=== PATIENT | male | born 1935 | race Caucasian/White ===

== ENCOUNTER → 2018-01-18 | Outpatient (CLI) | payer MEDICARE, OTHER ==
[~2018-01-18] MED LIST: ALB18R INH; AMOX-559 PO; ASCO-191 PO; ASPI81TA94 PO; AZIT-1 PO; CALC-852 PO; DIPH0.5D12 IM; DONE10TA38 PO; GARL5000 PO; GLUC100026 PO; GUAI600T57 PO; IPRA3AMP21 IH; LEVO750T44 PO; MEMA28CA PO; PNEU0.5D3 IM; PRED-1 PO; PRED20TA6 PO; VITA0.4T10 PO
== END ==
LOC: LAB 14:24
PROVIDERS: ATTEND Nurse Practitioner Family
DX: R41.0 Disorientation, unspecified (principal)
CPT/HCPCS: 81001

== ENCOUNTER → 2018-01-25 | Outpatient (CLI) | payer MEDICARE, OTHER ==
--- NOTE | 2018-01-25 11:07 | RADIOLOGY IMAGING REPORT ---
FACILITY: [facility] PATIENT NAME: Ramiro Edmond : 1935 MR: [id number] V: [id number] EXAM DATE: ORDERING PHYSICIAN: LEIGH SCHAEFER TECHNOLOGIST: Location: [facility] Patient: Ramiro Edmond : 1935 Visit/Account:[id number] Date of Sevice: 01/25/2018 EXAMINATION: Head CT without intravenous contrast HISTORY: Confusion, frequent falls, dementia, severe fall and hit head November 2017 TECHNIQUE: Contiguous axial images were obtained from the skull base to the vertex without intraven ous contrast. Sagittal and coronal reformatted images are also submitted. Dose Lowering Technique One of the following dose optimization techniques was utilized in the performance of this exam: Autom ated exposure control; adjustment of the mA and/or kV according to the patient's size; or use of an i terative reconstruction technique. Specific details can be referenced in the facility's radiology C T exam operational policy. COMPARISON: MR the brain July 18, 2013 FINDINGS: Brain volume: There is mild diffuse central and cortical atrophy present. Also noted is moderate ce rebellar atrophy although similar to the prior MR Ventricles: There are bilateral choroid plexus cysts in the trigones of both lateral ventricles as w ere present on the prior MR Acute ischemic changes: None. Hemorrhage: There is a holohemispheric isodense left subdural hematoma. The hematoma measures appro ximately 1.1 cm in maximum thickness. There is a 3.5 mm left to right midline shift. There is also a 1 cm in diameter isodense right parietal subdural hematoma Masses / edema: None. Paz-white: Negative. White matter: Normal. Vessels: There are moderate calcifications in the vertebral arteries and carotid siphons. The ectat ic left vertebral artery is producing marked mass effect on the ventral aspect of the medulla althoug h appears similar to the prior MR Extra-axial: As discussed above under hemorrhage Calvarium / scalp: Negative. Skull base / visualized face: Negative. Visualized sinuses / orbits: Negative. IMPRESSION: There are bilateral isodense subdural hematomas as described above. The largest is on the left and i s producing a 3.5 mm [id number] midline shift. There is no evidence of downward transtentorial he rniation. There is marked mass effect on the ventral aspect of the mid to this secondary to the ectatic left ve rtebral artery although appears similar to the prior MR. . 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 Report Dictated By: Angeles Christie MD at 01/25/2018 10:47 AM Report E-Signed By: Angeles Christie MD at 01/25/2018 11:03 AM WSN:[id number]
== END ==
LOC: RAD 10:02
PROVIDERS: ATTEND Internal Medicine
DX: S06.329A Contusion and laceration of left cerebrum with loss of consciousness of unspecified duration, initial encounter (principal); S06.319A Contusion and laceration of right cerebrum with loss of consciousness of unspecified duration, initial encounter; I77.819 Aortic ectasia, unspecified site; G93.0 Cerebral cysts
CPT/HCPCS: 70450

== ENCOUNTER → 2018-01-29 | Outpatient (CLI) | payer MEDICARE, OTHER ==
--- NOTE | 2018-01-29 16:04 | RADIOLOGY IMAGING REPORT ---
FACILITY: [facility] PATIENT NAME: Ramiro Edmond : 1935 MR: [id number] V: [id number] EXAM DATE: ORDERING PHYSICIAN: LEIGH SCHAEFER TECHNOLOGIST: Location: [facility] [place] Patient: Ramiro Edmond : 1935 Visit/Account:[id number] Date of Sevice: 01/29/2018 EXAMINATION: Head CT without intravenous contrast History: Lateral subdural hematomas TECHNIQUE: Contiguous axial images were obtained from the skull base to the vertex without intraven ous contrast. One of the following dose optimization techniques was utilized in the performance of th is exam: Automated exposure control; adjustment of the mA and/or kV according to the patient's size; or use of an iterative reconstruction technique. Specific details can be referenced in the facility 's radiology CT exam operational policy. COMPARISON STUDIES: 01/25/2018 FINDINGS: Bilateral predominantly low-density subdural collections left larger than right are redemonstrated. T he right-sided collection is slightly smaller measuring 7 mm in greatest thickness previously measuri ng 8 mm. Minimal midline shift unchanged. No evidence of new hemorrhage. Basilar cisterns remain pantoja nt. IMPRESSION: Slight interval decrease in right-sided subdural collection, the left subdural collection appears stable. There is no evidence of new hemorrhage. Report Dictated By: Ariel Mckeon MD at 01/29/2018 3:55 PM Report E-Signed By: Ariel Mckeon MD at 01/29/2018 3:58 PM WSN:[email or web address]
== END ==
LOC: CT 02:57
PROVIDERS: ATTEND Internal Medicine
DX: I62.00 Nontraumatic subdural hemorrhage, unspecified (principal)
CPT/HCPCS: 70450

== ENCOUNTER 2018-04-13 16:12 | Emergency (ER) | payer MEDICARE, OTHER ==
--- NOTE | 2018-04-13 16:16 | ER Report ---
History and Physical Time Seen By MD: 16:16 HPI/ROS CHIEF COMPLAINT: fell in shower HISTORY OF PRESENT ILLNESS: Pt his am fell in the shower. statse it is a small space so "he did not go far". Landed on his buttocks and hit the back of his head. No loc. Pt has c/o of posterior neck pian radiating to both shoulders since the fall. No headache. no nausea. no vomiting. decided to bring him in since he still was c/o of neck discomfort this afternoon. No numbness to extremities. Pts gait is stable. Pt has mild dementia. REVIEW OF SYSTEMS: Constitutional: No fever, no chills. Eyes: No discharge. ENT: No sore throat. Cardiovascular: No chest pain, no palpitations. Respiratory: No cough, no shortness of breath. Gastrointestinal: No abdominal pain, no vomiting. Genitourinary: No hematuria. Musculoskeletal: No back pain, + cervical pain Skin: No rashes. Neurological: No headache. Allergies: Coded Allergies: No Known Drug Allergies (Unverified , 04/13/18) Home Meds Active Scripts Ipratropium/Albuterol Sulfate (IPRAT-ALBUT 0.5-3(2.5) MG/3 ML) 3 Ml Ampul.neb, 3 ML IH Q4-6H Y for WHEEZING, #20 VIAL 0 Refills Prov:MANUEL MUNIZ DNP, HAND BOX COVERER-BC 09/05/17 Reported Medications Aspirin (ASPIRIN) 81 Mg Tab.chew, 1 TAB PO QDAY, TAB.CHEW 03/23/16 Guaifenesin (MUCINEX) 600 Mg Tablet.er, 1 TAB PO BID 03/19/15 Calcium Carbonate/Vitamin D3 (CALCIUM + VITAMIN D TABLET) 1 Each Tablet, 1 TAB PO QDAY 03/19/15 Memantine Hcl (NAMENDA XR) 28 Mg Cap.spr.24, 1 CAP PO QDAY, CAP 03/18/15 Garlic (GARLIQUE) 5,000 Mcg Tablet, 1 TAB PO QDAY 10/25/13 Vitamin B Complex/Folic Acid (VITAMIN B-50 COMPLEX TABLET) 0.4 Mg Tablet, 1 CAP PO QDAY 10/25/13 Ascorbic Acid (VITAMIN C) 1,000 Mg Tablet, 1 TAB PO QDAY 10/25/13 Glucosamine Sulfate 2KCL (GLUCOSAMINE) 1,000 Mg Tablet, 1 TAB PO BID 10/25/13 Donepezil Hcl (DONEPEZIL HCL) 10 Mg Tablet, 1 TAB PO QDAY, TAB 10/25/13 Discontinued Scripts Levofloxacin 750 Mg Tab (LEVAQUIN 750 MG TAB) 750 Mg Tablet, 1 TAB PO QDAY for 5 Days, #5 TAB 0 Refills Prov:MANUEL MUNIZ DNP, HAND BOX COVERER-BC 09/05/17 Past Medical/Surgical History Pmhx: dementia, tia, pneumonia, subdural?, closed rib fx, cellulitis Pshx: appy, hernia repair, arthroscopy, carpel tunnel release Reviewed Nurses Notes: Yes Smoking Status: Never Smoker Exposure to Second Hand Smoke?: No Constitutional Vital Sign - Last 24 Hours 04/13/18 04/13/18 04/13/18 04/13/18 16:23 16:30 16:40 16:42 Temp 98.0 Pulse 60 61 Resp 17 23 B/P (MAP) 140/76 (97) 138/85 (102) 140/76 Pulse Ox 92 O2 Delivery Room Air 04/13/18 04/13/18 04/13/18 04/13/18 17:00 17:12 17:30 17:42 Pulse 60 61 Resp 19 20 B/P (MAP) 131/77 (95) 138/80 (99) Pulse Ox 90 91 04/13/18 18:00 B/P (MAP) 143/80 (101) Physical Exam General Appearance: The patient is alert, has no immediate need for airway protection and no signs of toxicity. Eyes: Pupils equal and round no pallor or injection, EOMI ENT: no pharyngeal erythema or exudates, Mucous membranes are moist, neg hemotympanums b/ Respiratory: There are no retractions, lungs are clear to auscultation. Cardiovascular: Regular rate and rhythm. pulses are equal and symmetrical Gastrointestinal: Abdomen is soft and non tender, no masses, bowel sounds normal, no guarding, no rigidity or rebound Neurological: Cranial nerves II-XII grossly intact, no sensory or motor loss Skin: Warm and dry, no rashes. Musculoskeletal: Neck is supple non tender, no vertebral tenderness Extremities are nontender, non swollen and have full range of motion. DIFFERENTIAL DIAGNOSIS: After history and physical exam differential diagnosis was considered for cervical strain, cervical fracture, close head injury , subdural Medical Decision Making EKG/Imaging Imaging See reports ED Course/Re-evaluation ED Course Will obtain imaging 04/13/2018 5:48:01 pm Spoke with [facility] radiology. pt has a cervical fx as well as intracranial bleed. Spoke with and let her know he needs to be transferred. she prefers [facility] over [place] if possible. 04/13/2018 6:07:07 pm Spoke with Trauma surgeon at [facility] who will accept as long as neurosurgery feels comfortable 04/13/2018 6:13:[address] Greene, neurosurgery feels patient is not a candidate for there facility and feels that he needs a place that can care for his sah as well as the subdural and non displaced cervical fx. 04/13/2018 6:15:19 pm Page out to [facility]. 04/13/2018 6:20:50 pm Family and pt are made aware that [facility] will not accept pt and that he will need to go to [place]. Awaiting accepting doctor. 04/13/2018 6:38:[address] Puga, trauma surgeon who accepts pt to [facility]. Would like us to give DDAVP if available. 04/13/2018 6:43:[address] Puga to let him know that we have DDAVP. States recommended dose 0.3mvg/kg Calling for transport. Decision to Disposition Date: Apr 13, 2018 Decision to Disposition Time: 18:58 Critical Care Time I spent a total of 30 minutes of critical care time in obtaining history, performing a physical exam, bedside monitoring of interventions, collecting and interpreting tests and discussion with consultants but not including time spent performing procedures. Depart Departure Latest Vital Signs Vital Signs Date Time Temp Pulse Resp B/P (MAP) Pulse Ox O2 Delivery O2 Flow Rate FiO2 04/13/18 18:00 143/80 (101) 04/13/18 17:42 61 20 91 04/13/18 16:40 98.0 Room Air Impression: Primary Impression: Fall in (into) shower or empty bathtub, initial encounter Additional Impressions: C2 cervical fracture Subdural hematoma Subarachnoid bleed Condition: Condition Unchanged Disposition: XFER TO [facility]UTE [facility]ARE [facility]OS[facility] Referrals: LEIGH SCHAEFER MD (PCP) Problem Qualifiers Additional Impressions: C2 cervical fracture Encounter type: initial encounter Fracture type: closed Fracture morphology : unspecified fracture morphology Fracture alignment: nondisplaced Qualified Codes: S12.101A - Unspecified nondisplaced fracture of second cervical vertebra, initial encounter for closed fracture YO MARIE DO Apr 13, 2018 16:16
--- NOTE | 2018-04-13 17:47 | RADIOLOGY IMAGING REPORT ---
FACILITY: [facility] [place] PATIENT NAME: Ramiro Edmond : 1935 MR: [id number] V: [id number] EXAM DATE: ORDERING PHYSICIAN: YO MARIE TECHNOLOGIST: Location: [facility] [place] Patient: Ramiro Edmond : 1935 Visit/Account:[id number] Date of Sevice: 04/13/2018 EXAMINATION: CT cervical spine without IV contrast HISTORY: Fall. TECHNIQUE: Thin axial CT images of the cervical spine were obtained without IV contrast, with sagit ruben and coronal 2D reconstructed images. One of the following dose optimization techniques was utilized in the performance of this exam: Autom ated exposure control; adjustment of the mA and/or kV according to the patient's size; or use of an i terative reconstruction technique. Specific details can be referenced in the facility's radiology C T exam operational policy. COMPARISON: None. FINDINGS: Exam is positive for cervical spine fracture. There is a nondisplaced and mildly comminuted fracture extending through the left lateral mass of C2. Fracture line extends superiorly to the articular surf cami at C1-C2 and inferiorly into the pars interarticularis and transverse foramen. No displacement. T he dens is intact. No visualized right-sided C2 fracture. The C1 ring is intact, with normal alignment at the craniocervical junction. No evidence of additional fracture or subluxation in the cervical spine. Normal alignment. Vertebral body height is maintained. Chronic multilevel degenerative changes in the cervical spine. There is severe disc space narrowing a t C6-C7, with a small posterior disc-osteophyte complex which results in likely mild central canal na rrowing. There is milder disc space narrowing at the other cervical levels. Moderate multilevel facet arthropathy bilaterally. There is bony ankylosis of the C2-C4 vertebrae anteriorly and posteriorly. IMPRESSION: 1. Comminuted and nondisplaced fracture of the left lateral mass of C2, extending superiorly to the a rticular surface at C1-C2 and inferiorly along the pars interarticularis and transverse foramen. 2. No other acute osseous findings along the cervical spine. Normal alignment. 2. Chronic multilevel degenerative changes. Findings were discussed with YO MARIE at 04/13/2018 5:42 PM. Report Dictated By: Juan Manuel Kellogg MD at 04/13/2018 5:33 PM Report E-Signed By: Juan Manuel Kellogg MD at 04/13/2018 5:42 PM WSN:[id number]
--- NOTE | 2018-04-13 17:48 | RADIOLOGY IMAGING REPORT ---
FACILITY: [facility] - [place] PATIENT NAME: Ramiro Edmond : 1935 MR: [id number] V: [id number] EXAM DATE: ORDERING PHYSICIAN: YO MARIE TECHNOLOGIST: Location: [facility] - [place] Patient: Ramiro Edmond : 1935 Visit/Account:[id number] Date of Sevice: 04/13/2018 EXAMINATION: CT head without IV contrast HISTORY: Fall. TECHNIQUE: Axial CT images of the head were obtained from the vertex to the skull base without IV c ontrast, with coronal and sagittal 2D reconstructed images. One of the following dose optimization techniques was utilized in the performance of this exam: Autom ated exposure control; adjustment of the mA and/or kV according to the patient's size; or use of an i terative reconstruction technique. Specific details can be referenced in the facility's radiology C T exam operational policy. COMPARISON: 01/29/2018. FINDINGS: Exam is positive for acute intracranial hemorrhage. There is new hyperdense subdural hemorrhage overl amanuel the anterior and lateral right frontal lobe, measuring up to 4 mm in thickness. There is subarac hnoid hemorrhage tracking along sulci of the right frontal and parietal lobe, right sylvian fissure, and extending along the suprasellar cistern and to the left sylvian fissure. Additional small amount of subdural hemorrhage tracks along the anterior midline falx. There is a persistent hypodense subdural collection overlying the left cerebral convexity which has d ecreased in size from the prior exam. This currently measures up to 5 mm in maximal thickness, previo usly 11 mm. No hyperdense left-sided subdural hemorrhage. No significant mass effect. No midline shift. The basal cisterns are patent. Ventricles are stable in caliber. Mild generalized parenchymal atrophy. No new loss of mcmanus-white differentiation. The calvarium is intact. The partially visualized paranasal sinuses and mastoid air cells are unopaci fied. IMPRESSION: 1. Acute subdural hemorrhage overlying the right frontal lobe, measuring up to 4 mm in thickness. 2. Acute subarachnoid hemorrhage extending along sulci of the right frontal and parietal lobes, right sylvian fissure, and along the suprasellar cistern. 3. Chronic appearing left subdural collection has decreased in size from the prior exam. No evidence of any acute hyperdense subdural blood products on the left side. 4. No evidence of any significant mass effect. No midline shift. The basal cisterns are patent. Findings were discussed with YO MARIE at 04/13/2018 5:42 PM. Report Dictated By: Juan Manuel Kellogg MD at 04/13/2018 5:23 PM Report E-Signed By: Juan Manuel Kellogg MD at 04/13/2018 5:44 PM WSN:[id number]
[2018-04-13] MEDS ORDERED: NS 0.9% IVPB ONE (18:40)
[2018-04-13] MEDS ORDERED: DESMOPRESSIN ACET IVPB ONE (18:40)
[2018-04-13 19:01] LABS: PLATELET COUNT, AUTOMATED 183 K/uL (150-450)
[2018-04-13 19:10] LABS: INR 1.08
[2018-04-13 19:30] VITALS: BP 146/77
== END 2018-04-13 19:48 | disposition short-term general hospital (02) ==
LOC: ER 16:35
DX: S12.101A Unspecified nondisplaced fracture of second cervical vertebra, initial encounter for closed fracture (principal); S06.5X9A Traumatic subdural hemorrhage with loss of consciousness of unspecified duration, initial encounter; I60.9 Nontraumatic subarachnoid hemorrhage, unspecified; W18.2XXA Fall in (into) shower or empty bathtub, initial encounter
CPT/HCPCS: 70450; 72125; 85025; 85610; 85730; 96365; 99284; J2597; J7050; L0172; 82310; 82374; 82435; 82565; 82947; 84132; 84295; 84520

== ENCOUNTER → 2018-04-13 | Outpatient (CLI) | payer MEDICARE, OTHER | LOC: AMB 19:32 | PROVIDERS: ATTEND Nurse Practitioner | DX: S12.001A Unspecified nondisplaced fracture of first cervical vertebra, initial encounter for closed fracture (principal); S12.101A Unspecified nondisplaced fracture of second cervical vertebra, initial encounter for closed fracture; S06.6X9A Traumatic subarachnoid hemorrhage with loss of consciousness of unspecified duration, initial encounter | CPT/HCPCS: A0425; A0426 ==

== ENCOUNTER 2018-05-22 13:26 | Emergency (ER) | payer MEDICARE, OTHER ==
[~2018-05-22 13:26] MED LIST changes: +IPRA3AMP10 IH; -IPRA3AMP21 IH
[2018-05-22] MEDS ORDERED: PHYT100T4 PO (13:42)
[2018-05-22 14:00] VITALS: BP 117/80
--- NOTE | 2018-05-22 14:14 | ER Report ---
History and Physical Time Seen By MD: 14:03 Hx. of Stated Complaint: stats pt has dementia, he had a fall some time ago and has 2 subdural hematomas, that rebled in past, Yesterday he had another ct at [facility]. Today she feels his dementia is worse HPI/ROS CHIEF COMPLAINT: confusion HISTORY OF PRESENT ILLNESS: HPI is per as pt does not have short term recall. Pt has had multiple dr visits recently as he has had multiple falls ldg to acute on chronic subdurals and c2 fracture. Per , he has had increased confusion manifested by examples such as confusion about preparing sandwiches, being in the bathroom and trying to find the bathroom, etc which states is new. Pt does not recall this and denies any ros REVIEW OF SYSTEMS: limited by pt's dementia; pt does deny all Constitutional: No fever, no chills. Eyes: No discharge. ENT: No sore throat. Cardiovascular: No chest pain, no palpitations. Respiratory: No cough, no shortness of breath. Gastrointestinal: No abdominal pain, no vomiting. Genitourinary: No hematuria. Musculoskeletal: No back pain. Skin: No rashes. Neurological: No headache. Allergies: Coded Allergies: No Known Drug Allergies (Unverified , 05/22/18) Home Meds Reported Medications Phytonadione (VITAMIN K) 100 Mcg Tablet, 100 MCG PO 05/22/18 Memantine Hcl (NAMENDA XR) 28 Mg Cap.spr.24, 1 CAP PO QDAY, CAP 05/09/18 Guaifenesin (MUCINEX) 600 Mg Tablet.er, 1 TAB PO BID 03/19/15 Calcium Carbonate/Vitamin D3 (CALCIUM + VITAMIN D TABLET) 1 Each Tablet, 1 TAB PO QDAY 03/19/15 Vitamin B Complex/Folic Acid (VITAMIN B-50 COMPLEX TABLET) 0.4 Mg Tablet, 1 CAP PO QDAY 10/25/13 Ascorbic Acid (VITAMIN C) 1,000 Mg Tablet, 1 TAB PO QDAY 10/25/13 Glucosamine Sulfate 2KCL (GLUCOSAMINE) 1,000 Mg Tablet, 1 TAB PO BID 10/25/13 Donepezil Hcl (DONEPEZIL HCL) 10 Mg Tablet, 1 TAB PO QDAY, TAB 10/25/13 Past Medical/Surgical History pt wearing c collar Hx Smoking: No Smoking Status: Never Smoker Exposure to Second Hand Smoke?: No Hx Substance Use Disorder: No Hx Alcohol Use: No Constitutional Vital Sign - Last 24 Hours 05/22/18 13:34 Temp 97.6 Pulse 61 Resp 20 B/P (MAP) 125/77 Pulse Ox 91 O2 Delivery Room Air Physical Exam General Appearance: [The patient is alert, has no immediate need for airway protection and no signs of toxicity.] he is in c collar Eyes: Pupils equal and round no pallor or injection. ENT, Mouth: Mucous membranes are moist. Respiratory: There are no retractions, lungs are clear to auscultation. Cardiovascular: Regular rate and rhythm. [ ] Gastrointestinal: Abdomen is soft and non tender, no masses, bowel sounds normal. Neurological: alert, oriented to place and person, cn ii-xii intact, 5/5 ms, nl fnf, no ddk, nl lt touch throughout. Nl ambulation Skin: Warm and dry, no rashes. Musculoskeletal: no back pain/ttp Extremities are nontender, nonswollen and have full range of motion. [ ] DIFFERENTIAL DIAGNOSIS: After history and physical exam differential diagnosis was considered for altered mental status including but not limited to hypoglycemia, infectious process, electrolyte abnormality, head injury and intoxicants. Medical Decision Making ED Course/Re-evaluation ED Course Pt was seen yesterday in [facility] for similar; presents reports of improving head ct, nl labs, ua. There have been no sudden changes or fall since yesterday; pt comfortable in ed. Discussed r/b of further testing vs obs until f /u tomorrow with ; I offered to test for ams but at this point she feels comfortable observing and monitoring with f/u tomorrow. Decision to Disposition Date: May 22, 2018 Decision to Disposition Time: 14:10 Depart Departure Latest Vital Signs Vital Signs Date Time Temp Pulse Resp B/P (MAP) Pulse Ox O2 Delivery O2 Flow Rate FiO2 05/22/18 13:34 97.6 61 20 125/77 91 Room Air Impression: Primary Impression: Confusion Condition: Improved Disposition: HOME OR SELF-CARE Referrals: LEIGH SCHAEFER MD (PCP) Patient Instructions: Dementia (ED) Additional Instructions: As we discussed, it is reasonable to follow up with your neurosurgeon tomorrow, espeically given the improving ct and normal labs/urine yesterday. I certainly am willing to repeat tests today, but given the exam at this point, it is reasonable to follow up. Please return immediately for worsening symptoms or any concerns. MIMI VILLARREAL MD May 22, 2018 14:14
== END 2018-05-22 14:23 | disposition home or self-care (01) ==
LOC: ER 13:38
DX: F03.90 Unspecified dementia, unspecified severity, without behavioral disturbance, psychotic disturbance, mood disturbance, and anxiety (principal); R41.0 Disorientation, unspecified; Z91.81 History of falling
CPT/HCPCS: 36416; 82948; 99282

== ENCOUNTER 2018-10-31 10:45 | Outpatient (RCR) | payer MEDICARE, OTHER ==
--- NOTE | 2018-09-26 16:28 | SPEECH INITIAL EVALUATION ---
CLINICAL DYSPHAGIA ASSESSMENT Physician: Dr. Rodrigo Rodriguez Clinician: Danuta Sorenson MS, [facility]3]-EMS INSTRUCTOR, Lori Scherer, Lance Crewmember/Mlrs Sergeant Clinician Type of Assessment: Clinical Dysphagia Evaluation Patient: Ramiro Edmond : 1935, 83yo Evaluation Date: 09/26/2018 BACKGROUND The pt is an 83-year-old male referred for outpatient dysphagia evaluation via primary care physician due to ongoing reports of difficulty swallowing. The pt has a history of dementia, and does not recall any choking episodes or swallowing deficits. His spouse was present throughout evaluation procedures to provide a case history. At the end of his thanksgiving meal on 09/20/18, the pts spouse reports he choked on a turkey leg with successful expectoration of the material in addition to a small amount of mucus. The same evening, the pt choked on a piece of pie with a dry, crumbly crust. The pt has a long-standing history of pharyngeal dysphagia and previously participated in swallowing interventions in 2014. Objective improvements were reported with adherence to pharyngeal exercise program. The pt is now unable to recall instructions from his previous plan of care, and his spouse is unable to be consistently available to remind him of compensatory strategies at meals. Spouse reports that choking episodes occur at least 1x/week. An ST swallow evaluation is warranted to further evaluate swallow structure and function, analyze potential cause of reported swallowing deficits, and make appropriate recommendations for dysphagia management. PREVIOUS LEVEL OF FUNCTION: Primary Medical Diagnosis: R13.13; pharyngeal dysphagia Past Medical History: Dementia, TIA, transient global amnesia, bronchitis, pneumonia, sleep apnea, pulmonary nodule, falls Prior Level of Function: resides with spouse who is available to provide assistance with daily activities. The pt consumes a regular diet, thin liquids, and whole medications. COGNITION/COMMUNICATION: Pain Scale (0-10): 0 LOC / Participation: alert, cooperative, pleasant, humorous Cognitive-Linguistic: Impaired. The pt has baseline dementia and does not recall any deficits in swallowing. He frequently repeated himself throughout assessment procedures. Cognitive- Linguistic deficits impact swallow function/safety, or response to therapy: Yes. The pt has trouble recalling and executing compensatory swallow strategies. Cognitive dysphagia is also suspected. Functional Communication: Pt lacks functional communication safety and independence, including difficulty communicating medical history and perceived signs/symptoms. Spouse was present throughout encounter. SPEECH / VOICE Apraxia: Non-apraxic Dysarthric: Non-dysarthric Overall intelligibility: 100% Vocal Deficits: No DYSPHAGIA Sialorrhea: No Xerostomia: No; however, pt w/ complaints of dryness in throat Supplemental Oxygen Use: No Oxygen Saturation: COPD Dx: no; however, the pt exhibited very shallow, clavicular breathing through oral cavity. Hx of sleep apnea, pneumonia, bronchitis, and solitary pulmonary nodule. Pain with Swallow: Denies A clinical swallow assessment was completed in the ST office. Oromotor exam was remarkable for lingual deviation to the L side during protrusion. Hyolaryngeal movement during salivary swallow appeared diminished to palpation. The pt was analyzed with PO trials of the following textures: thin liquids and pureed, mechanical soft and regular food consistencies. Subtle change in vocal quality was observed after a single attempt of consecutive straw sips. This also coincided with pts attempt to talk while simultaneously drinking. All other trials were tolerated with no other s/s of aspiration. Suspect delay in pharyngeal swallow onset characterized by extended time between oral acceptance and swallow initiation. However, this could also be indicative of oral holding. Pt was observed taking multiple bites prior to complete mastication of previously accepted material, and prior to swallow onset. Cognitive deficits appear to be negatively impacting feeding habits with subsequently elevated risk for choking and aspiration. EAT-10: 1; A score of 3 or greater may indicate swallowing problems. Score is generated via pt response to 10 questions based on a 0-4 subjective rating scale. A score of 0 indicates no problem, whereas a score of 4 indicates a severe problem. Pts spouse reported the following: Coughing occurs while eatin (mild impairment) All other domains: 0 (no problem) Although no significant, subjective deficits were reported on the EAT-10 assessment, choking appears to be a regular occurrence for this pt. Esophageal Stage Esophageal Stage Dysphagia Indicated: No. No reflux or other GI history reported. Dysphagia Outcome Severity Level 4: Mild-moderate dysphagia, recommend intermittent supervision and cueing. Avoid problematic foods. ST ASSESSMENT SUMMARY Aspiration Risk: Elevated 2/2 severity of dementia with increased risk for decreased task recognition, reduced awareness of material in oral cavity, difficulty with task sequencing, and maladaptive feeding habits. Environmental adaptation are recommended during mealtime activities as outlined in strategies below. Subtle change in vocal quality was noted with thin liquids. Pt also with history of pharyngeal dysphagia documented via multiple modified barium swallow studies. Most recent swallow study illustrated residue in pharynx with increased risk for post-swallow aspiration of residual material. History of repeating choking episodes further elevates risk for aspiration. Speech Therapy Need Dysphagia interventions are necessary to provide education and training in strategies and exercises to minimize this pts risk for aspiration, choking, and respiratory compromise. May consider repeat MBSS. RECOMMENDATIONS 1. ST 2x/week, 5 weeks 2. Diet: regular solids, thin liquids. Avoid problematic foods 3. Strategies: Eat in a quiet environment, limit distractions, upright position, intermittent supervision, alternate consistencies, eat slowly, small bites/sips, and 1 bite at a time. 4. Medications: continue as tolerated. reports success with whole pills with blended beverages. PLAN OF CARE Short Term Goals 1. Spouse will receive education regarding safe swallow precautions and compensatory techniques and will independently provide verbal /visual demonstration of comprehension. 2. The patient will participate in a 5-8wk dysphagia exercise based therapy program to address identified areas of pharyngeal weakness, improve airway protection, and minimize risk for aspiration with min cues and access to external visual aids. Alf Goals: The patient will consume regular food and liquid diet without s/s of dysphagia. Rehabilitation Prognosis: Good. Patient demonstrates cooperation, and strong support via significant other. Thank you for this referral. Please call [phone] Danuta Sorenson M.S., [facility]3]-EMS INSTRUCTOR Lori Scherer, Lance Crewmember/Mlrs Sergeant Clinician Physician Signature Date [*] MTDD
[~2018-10-31 10:45] MED LIST changes: +PHYT100T4 PO
--- NOTE | 2018-10-31 11:56 | SLP DISCHARGE NOTE ---
SPEECH PATHOLOGY DYSPHAGIA DISCHARGE SUMMARY Physician: Dr. Rodrigo Rodriguez End of Care: 10/31/17 Clinician: Danuta Sorenson M.S., [facility]-PAROLE DIRECTOR Patient: Ramiro Edmond : 1935 Mr. Edmond has been attending ST at [facility] 1-2x/wk since 09/26/2018. He regularly attends scheduled visits, and is accompanied by his spouse who is present and participatory throughout all appointments. Mr. Edmond and his spouse consistently report completion of dysphagia home exercise program. He has demonstrated notable reduction in s/sx of dysphagia vs status at initial evaluation, including no occurrences of choking episodes or signs of aspiration over the past 1-2 weeks. The patient has been working on the following short term goals: 1. Spouse will receive education regarding safe swallow precautions and compensatory techniques and will independently provide verbal /visual demonstration of comprehension. 10/31/17: MET. Spouse demonstrating comprehension and execution of educational information, including implementation of external visual aides during meals at home. Spouse also accurate in describing exercise program, and is available to assist the patient with exercise completion when needed. 2. The patient will participate in a 5-8wk dysphagia exercise based therapy program to address identified areas of pharyngeal weakness, improve airway protection, and minimize risk for aspiration with min cues and access to external visual aids. 10/31/17: MET. Pt has attended all 10 scheduled appointments with improved independence during completion of exercise based therapy program. In collaboration with his spouse, the pt is able to independently execute his exercise program at home. No s/sx of dysphagia or aspiration have been reported in the past 1-2 weeks. [place] Goals: The patient will consume regular food and liquid diet without s/s of dysphagia. MET. No s/sx of aspiration or dysphagia in the past 1-2 weeks. SUMMARY Mr. Edmond has demonstrated significantly improved swallow status w/ minimization to elimination overt s/sx of aspiration per spousal report. Mr. Edmond has also demonstrated improved execution of home exercise program, and spouse reports intention to continue daily exercise routine upon discharge from speech services. Mr. Edmond and his spouse are agreeable to returning for a re- consultation as warranted in the future. All goals have been met. ST to discharge at this time. Thank you for referring this patient to [facility], Speech- Language Pathology. Please call [phone] to contact the PAROLE DIRECTOR with questions or concerns. Respectfully, Danuta Sorenson M.S., CCC-PAROLE DIRECTOR Physician Signature Date [*] MTDD
== END 2018-10-31 18:00 | disposition home or self-care (01) ==
LOC: ST 10:45
PROVIDERS: ATTEND Internal Medicine
DX: R13.13 Dysphagia, pharyngeal phase (principal); F03.90 Unspecified dementia, unspecified severity, without behavioral disturbance, psychotic disturbance, mood disturbance, and anxiety

== ENCOUNTER 2019-01-30 15:32 | Emergency (ER) | payer MEDICARE, OTHER ==
--- NOTE | 2019-01-30 15:57 | ER Report ---
History and Physical Time Seen By MD: 13:50 Hx. of Stated Complaint: REPORTS CONFUSED MORE THAN NORMAL. PATIENT DOES NOT KNOW WHY HE IS HERE HPI/ROS CHIEF COMPLAINT: Confusion HISTORY OF PRESENT ILLNESS: 83-year-old male history of baseline dementia is had an episode today of confusion last an episode similar to this he was diagnosed with a hematoma this was several years ago patient had up episode of confusion was a little disoriented this morning his resolve subsequently unraveled emergency Prozac hourshiswifeisconcernedthatthismaybeeveryPbleedofhi shematomapatienthasnocomplaintsthistimeisalertandorientedbaselinenootherfocalcom plaints REVIEW OF SYSTEMS: Respiratory: No cough, no dyspnea. Cardiovascular: No chest pain, no palpitations. Gastrointestinal: No vomiting, no abdominal pain. Musculoskeletal: No back pain. Remainder of the 14 system rev: Yes Allergies: Coded Allergies: No Known Drug Allergies (Unverified , 05/22/18) Home Meds Reported Medications Phytonadione (VITAMIN K) 100 Mcg Tablet, 100 MCG PO 05/22/18 Memantine Hcl (NAMENDA XR) 28 Mg Cap.spr.24, 1 CAP PO QDAY, CAP 05/09/18 Guaifenesin (MUCINEX) 600 Mg Tablet.er, 1 TAB PO BID 03/19/15 Calcium Carbonate/Vitamin D3 (CALCIUM + VITAMIN D TABLET) 1 Each Tablet, 1 TAB PO QDAY 03/19/15 Vitamin B Complex/Folic Acid (VITAMIN B-50 COMPLEX TABLET) 0.4 Mg Tablet, 1 CAP PO QDAY 10/25/13 Ascorbic Acid (VITAMIN C) 1,000 Mg Tablet, 1 TAB PO QDAY 10/25/13 Glucosamine Sulfate 2KCL (GLUCOSAMINE) 1,000 Mg Tablet, 1 TAB PO BID 10/25/13 Donepezil Hcl (DONEPEZIL HCL) 10 Mg Tablet, 1 TAB PO QDAY, TAB 10/25/13 Reviewed Nurses Notes: Yes Old Medical Records Reviewed: Yes Hx Smoking: No Smoking Status: Never Smoker Exposure to Second Hand Smoke?: No Hx Substance Use Disorder: No Hx Alcohol Use: No Constitutional Vital Sign - Last 24 Hours 01/30/19 15:37 Temp 98.3 Pulse 74 Resp 16 B/P (MAP) 148/87 Pulse Ox 97 O2 Delivery Room Air Physical Exam General Appearance: [The patient is alert, has no immediate need for airway protection and no current signs of toxicity.] [ ] Eyes: Pupils equal and round no injection. Respiratory: Chest is non tender, lungs are clear to auscultation. Cardiac: regular rate and rhythm [ ] Gastrointestinal: Abdomen is soft and non tender, no masses, bowel sounds normal. Musculoskeletal: Neck: Neck is supple and non tender. Extremities have full range of motion and are non tender. Skin: No rashes or lesions. Neuro at baseline cognitive normal for his disease state DIFFERENTIAL DIAGNOSIS: After history and physical exam differential diagnosis was considered for worsening dementia subdural hematoma. Tract infection Medical Decision Making Data Points Laboratory Hematology Test 01/30/19 15:29 Urine Color [place] Urine Clarity Slightly-cloudy Urine pH 5.0 pH (4.8-9.5) Urine Specific [place] 1.020 Urine Protein Negative mg/dL (NEGATIVE) Urine Glucose (UA) Negative mg/dL (NEGATIVE) Urine Ketones Negative mg/dL (NEGATIVE) Urine Blood Negative (NEGATIVE) Urine Nitrite Negative (NEGATIVE) Urine Bilirubin Negative (NEGATIVE) Urine Urobilinogen Negative mg/dL (0.2-1.9) Urine Leukocyte Esterase Negative (NEGATIVE) Urine RBC <1 /HPF (0-2/HPF) Urine WBC <1 /HPF (0-5/HPF) Urine Squamous Epithelial Cells None /LPF (</=FEW) Urine Bacteria Negative /HPF (NONE-FEW) Urine Mucus None /HPF (NONE-FEW) Chemistry Test 01/30/19 15:29 Urine Color [place] Urine Clarity Slightly-cloudy Urine pH 5.0 pH (4.8-9.5) Urine Specific [place] 1.020 Urine Protein Negative mg/dL (NEGATIVE) Urine Glucose (UA) Negative mg/dL (NEGATIVE) Urine Ketones Negative mg/dL (NEGATIVE) Urine Blood Negative (NEGATIVE) Urine Nitrite Negative (NEGATIVE) Urine Bilirubin Negative (NEGATIVE) Urine Urobilinogen Negative mg/dL (0.2-1.9) Urine Leukocyte Esterase Negative (NEGATIVE) Urine RBC <1 /HPF (0-2/HPF) Urine WBC <1 /HPF (0-5/HPF) Urine Squamous Epithelial Cells None /LPF (</=FEW) Urine Bacteria Negative /HPF (NONE-FEW) Urine Mucus None /HPF (NONE-FEW) Urinalysis Test 01/30/19 15:29 Urine Color [place] Urine Clarity Slightly-cloudy Urine pH 5.0 pH (4.8-9.5) Urine Specific [place] 1.020 Urine Protein Negative mg/dL (NEGATIVE) Urine Glucose (UA) Negative mg/dL (NEGATIVE) Urine Ketones Negative mg/dL (NEGATIVE) Urine Blood Negative (NEGATIVE) Urine Nitrite Negative (NEGATIVE) Urine Bilirubin Negative (NEGATIVE) Urine Urobilinogen Negative mg/dL (0.2-1.9) Urine Leukocyte Esterase Negative (NEGATIVE) Urine RBC <1 /HPF (0-2/HPF) Urine WBC <1 /HPF (0-5/HPF) Urine Squamous Epithelial Cells None /LPF (</=FEW) Urine Bacteria Negative /HPF (NONE-FEW) Urine Mucus None /HPF (NONE-FEW) ED Course/Re-evaluation ED Course ED clinical course 83-year-old male who comes in with worsening dementia brief episode resolved CT shows no bleed intracranial hemorrhage or hematoma urinalysis is negative patient return to his baseline this is a simple flexion of his underlying baseline disease state we'll diagnose accordingly Decision to Disposition Date: Jan 30, 2019 Decision to Disposition Time: 16:38 Depart Departure Latest Vital Signs Vital Signs Date Time Temp Pulse Resp B/P (MAP) Pulse Ox O2 Delivery O2 Flow Rate FiO2 01/30/19 15:37 98.3 74 16 148/87 97 Room Air Impression: Primary Impression: Dementia Condition: Condition Unchanged Disposition: HOME OR SELF-CARE Referrals: LEIGH SCHAEFER MD (PCP) 5 Days Patient Instructions: Dementia (ED) LAUREL CHAN MD Jan 30, 2019 15:57
--- NOTE | 2019-01-30 16:33 | RADIOLOGY IMAGING REPORT ---
FACILITY: [facility] PATIENT NAME: Ramiro Edmond : 1935 MR: [id number] V: [id number] EXAM DATE: ORDERING PHYSICIAN: LAUREL CHAN TECHNOLOGIST: Location: [facility] Patient: Ramiro Edmond : 1935 Visit/Account:[id number] Date of Sevice: 01/30/2019 EXAMINATION: CT head without IV contrast HISTORY: Altered mental status. COMPARISON: Brain MRI from 07/18/[address] head from 04/13/2018. TECHNIQUE: Contiguous axial images were obtained from the skull base to the vertex without intraven ous contrast. Sagittal and coronal reformatted images are also submitted. One of the following dose optimization techniques was utilized in the performance of this exam: Autom ated exposure control; adjustment of the mA and/or kV according to the patient's size; or use of an i terative reconstruction technique. Specific details can be referenced in the facility's radiology C T exam operational policy. FINDINGS: Brain volume: Mild generalized atrophy with associated concordant prominence of the ventricular syst em. Ventricles: Normal. Acute ischemic changes: None. Hemorrhage: There is no acute intracranial hemorrhage. Masses/edema: None. Paz-white: Negative. White matter: Patchy hypodensities in the deep white matter bilaterally. Vessels: Calcified plaque of the vertebral arteries and carotid siphons at the skull base. 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 Extra-axial: Mild dural thickening on the left without a discrete fluid collection. Calvarium/scalp: Negative. Skull base/visualized face: Negative. Visualized sinuses/orbits: Negative. IMPRESSION: 1. No acute hemorrhage or intracranial mass lesion. No CT evidence of acute infarct. 2. Duzv-xr-jryaiuim nonspecific white matter disease is unchanged, and is suspicious for chronic sma ll vessel ischemia. 3. Mild dural thickening on the left is a sequela of previous subdural hemorrhage. No residual kacie lynn or fluid collection. Report Dictated By: Mi Alcantar MD at 01/30/2019 4:26 PM Report E-Signed By: Mi Alcantar MD at 01/30/2019 4:29 PM [id number]
[2019-01-30 16:41] VITALS: BP 125/87
== END 2019-01-30 16:48 | disposition home or self-care (01) ==
LOC: ER 15:44
DX: F03.90 Unspecified dementia, unspecified severity, without behavioral disturbance, psychotic disturbance, mood disturbance, and anxiety (principal)
CPT/HCPCS: 70450; 81001; 99284

== ENCOUNTER → 2019-02-07 | Outpatient (CLI) | payer MEDICARE, OTHER ==
[~2019-02-07] MED LIST changes: -DIPH0.5D12 IM; +DIPH0.5S2 IM; +SERT25TA90 PO
[2019-02-07 11:02] LABS: PLATELET COUNT, AUTOMATED 212 K/uL (150-450)
--- NOTE | 2019-02-08 09:39 | EKG ---
FACILITY: [facility] [place] PATIENT NAME: MAGDA MERCER : [id number] MR: [id number] V: [id number] EXAM DATE: ORDERING PHYSICIAN: ADIS CHAPA TECHNOLOGIST: ESTELLA Test Reason : tachycardia Blood Pressure : / mmHG Vent. Rate : 056 BPM Atrial Rate : 056 BPM P-R Int : 232 ms QRS Dur : 144 ms QT Int : 462 ms P-R-T Axes : 000 010 066 degrees QTc Int : 445 ms Sinus bradycardia with 1st degree AV block Right bundle branch block Abnormal ECG When compared with ECG of 22-JUL-2013 12:37, GA interval has increased Confirmed by ADIS CHAAP ([id number]) on 02/11/2019 4:44:44 PM Referred By: MADISON Confirmed By:ADIS CHAPA
== END ==
LOC: LAB 10:34
PROVIDERS: ATTEND Emergency Medicine
DX: F03.90 Unspecified dementia, unspecified severity, without behavioral disturbance, psychotic disturbance, mood disturbance, and anxiety (principal)
CPT/HCPCS: 36415; 82040; 82247; 82310; 82374; 82435; 82565; 82607; 82947; 84075; 84132; 84155; 84295; 84443; 84450; 84460; 84520; 85025

== ENCOUNTER → 2019-02-22 | Outpatient (CLI) | payer MEDICARE, OTHER ==
[~2019-02-22] MED LIST changes: +CALC1TAB30 PO; +OXYGENHOME INH; +PRAM0.1225 PO; +SERT-184 PO
== END ==
LOC: RESP 19:37
PROVIDERS: ATTEND Emergency Medicine
DX: G47.33 Obstructive sleep apnea (adult) (pediatric) (principal); G47.36 Sleep related hypoventilation in conditions classified elsewhere; G47.61 Periodic limb movement disorder

== ENCOUNTER → 2019-03-06 | Outpatient (CLI) | payer MEDICARE, OTHER | LOC: RESP 01:28 | PROVIDERS: ATTEND Emergency Medicine | DX: J96.11 Chronic respiratory failure with hypoxia (principal) | CPT/HCPCS: 94060; 94726; 94729 ==

== ENCOUNTER → 2019-03-20 | Outpatient (CLI) | payer MEDICARE, OTHER ==
[~2019-03-20] MED LIST changes: +IOPAMIDOL 76% 100 ML INFUS BTL 100 ML ONE; +NS(*) 0.9% 50 ML BAG 50 ML ONE
--- NOTE | 2019-03-20 17:08 | RADIOLOGY IMAGING REPORT ---
FACILITY: [facility] PATIENT NAME: Ramiro Edmond : 1935 MR: [id number] V: [id number] EXAM DATE: ORDERING PHYSICIAN: ADIS CHAPA TECHNOLOGIST: Location: [facility] [place] Patient: Rmairo Edmond : 1935 Visit/Account:[id number] Date of Sevice: 03/20/2019 EXAMINATION: CTA of the chest with IV contrast HISTORY: Elevated d-dimer. COMPARISON: Chest radiograph from 09/05/2017. CT of the chest from 03/07/2012. TECHNIQUE: Pulmonary embolus protocol - Thin-slice axial imaging of the chest was performed during maximal pulmonary arterial opacification with intravenous nonionic iodinated contrast. 3D coronal sla b MIPs and 2D reconstructions in the coronal and sagittal planes were performed to aid in pulmonary e mbolus detection. Retail Sales Manager images have been stored on PACS. CONTRAST: 75 mL of IV [id number] One of the following dose optimization techniques was utilized in the performance of this exam: Autom ated exposure control; adjustment of the mA and/or kV according to the patient's size; or use of an i terative reconstruction technique. Specific details can be referenced in the facility's radiology C T exam operational policy. FINDINGS: CTA CHEST: Please note that this exam is optimized for assessment of the pulmonary arteries and is not intended as a diagnostic study of the thoracic aorta, coronary arteries or venous structures. Angiographic Findings: Pulmonary arteries: There are no filling defects in the main, right, left, lobar, segmental or visual ized sub-segmental branches of the pulmonary arterial system. Other vasculature: Mild fusiform aneurysmal dilation of the ascending aorta which measures 4.4 cm i n diameter. Coronary artery calcifications. Mild calcified plaque along the aorta. Splenic artery komal cifications. Additional non-angiographic findings: Lungs / Pleura: Calcified granuloma in the left lower lobe. Mild patchy atelectasis in the lungs. N o pleural effusion. Mediastinum / Emily: Negative. Heart / Pericardium: Negative. Musculoskeletal / Body wall: Multiple chronic healed rib fracture deformities on the right. Lymph node assessment: Negative. Lower neck: Negative. Visualized upper abdomen: Colonic diverticulosis. A few small cysts in the liver. Bilateral renal cys ts. IMPRESSION: No evidence of pulmonary embolism. 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 Coronary artery calcifications. Report Dictated By: Jamil Black MD at 03/20/2019 4:45 PM Report E-Signed By: Jamil Black MD at 03/20/2019 5:03 PM WSN:[id number]
== END ==
LOC: CT 14:42
PROVIDERS: ATTEND Emergency Medicine
DX: I71.2 Thoracic aortic aneurysm, without rupture (principal); I25.84 Coronary atherosclerosis due to calcified coronary lesion; R79.89 Other specified abnormal findings of blood chemistry
CPT/HCPCS: 36415; 71275; 82565; J7050; Q9967

== ENCOUNTER → 2019-03-20 | Outpatient (CLI) | payer MEDICARE, OTHER ==
[~2019-03-20] MED LIST changes: -IOPAMIDOL 76% 100 ML INFUS BTL 100 ML ONE; -NS(*) 0.9% 50 ML BAG 50 ML ONE
== END ==
LOC: LAB 13:31
PROVIDERS: ATTEND Emergency Medicine
DX: R06.00 Dyspnea, unspecified (principal); R79.89 Other specified abnormal findings of blood chemistry
CPT/HCPCS: 36415; 83880; 85379; 86140

== ENCOUNTER → 2019-06-15 | Outpatient (CLI) | payer MEDICARE, OTHER ==
[~2019-06-15] MED LIST changes: +CIPR1DRO OT
== END ==
LOC: LAB 18:17
PROVIDERS: ATTEND Urology
DX: Z12.5 Encounter for screening for malignant neoplasm of prostate (principal); N40.1 Benign prostatic hyperplasia with lower urinary tract symptoms
CPT/HCPCS: 36415; 84153